=== PATIENT | female | born 1970 | race Caucasian/White ===

== ENCOUNTER 2019-04-10 05:51 | Observation (INO) ==
--- NOTE | 2019-03-28 15:37 | PAT Medication Instructions ---
Medication Instructions Date of Service March 28, 2019 Home Medications ergocalciferol (vitamin D2) 50,000 unit PO DIRECTED gabapentin 300 mg PO DAILY PRN DO NOT take the morning of surgery ergocalciferol (vitamin D2) 50,000 unit PO DIRECTED Take morning of surgery With a small sip of water, OTHERWISE NOTHING TO EAT OR DRINK AFTER MIDNIGHT: gabapentin 300 mg PO DAILY PRN (if needed) Other Notes If you have any questions please call us at [phone] or [phone] or [phone] or [phone]
--- NOTE | 2019-03-29 11:09 | Anesthesiology Consultation ---
Date of Service March 29, 2019 Assessment & Plan (1) Encounter for pre-operative examination: CHECK TEST AM DOS Chart Review Chart Review: Acceptable Risk for Surgery and Patient seen in Pre Admission Testing Teaching & Discussion Instructed NPO after midnight before surgery, except medications with 15 cc of water. Medication instructions provided according to the PAT guidelines. History Surgery Operation Date: 04/10/19 07:45 Proposed Procedures p C4-C5, C5-C6, C6-C7 Anterior Cervical Discectomy and Fusion, Spinal Cord Mointoring - Dilan Hollins DO Height/Weight Height: 5 ft 8 in Weight: 93.2 kg Allergies Allergy/AdvReac Type Severity Reaction Status Date / Time No Known Allergies Allergy Verified 03/28/19 08:10 Medications Home Medications Medication Instructions Recorded Confirmed Last Taken ergocalciferol (vitamin D2) 50,000 unit PO DIRECTED 03/28/19 03/28/19 Unknown [Vitamin D2] gabapentin 300 mg PO DAILY PRN 03/28/19 03/28/19 Unknown Past Medical History Medical History Cervical stenosis of spinal canal History of skin cancer on back Obesity Exercise / Class Metabolic Activity II 4-5 Yardwork/Stairs/Walk up hill (Denies CP or SOB with 1 FOS) Past Surgical History Surgical History H/O colonoscopy History of surgery removal melanoma on back Past Anesthesia History No Hx of Anesthesia Complications and No Family Hx of Anesthesia Complications History of PONV No Hx of PONV and Hx of Motion Sickness Social History Smoking Status: Current every day smoker Smoking cigarettes per day: h/o 1/2ppd Do You Dip or Chew Tobacco: No Smoking End Date: Quit 2-3yrs ago Hx Alcohol Use: Yes Alcohol type: beer and hard liquor alcohol intake frequency: a few times a week Hx Substance Use: No Review of Systems Pt denies any recent chest pain, shortness of breath, palpitations, cough, fever or URI. Physical Exam Vital Signs BP: 140/94 (pt reports this is high for her) P: 80bpm SPO2: 98% RA T: 98.3 F R: 12 ENMT Mouth: no dental restorations, no chipped teeth and no loose teeth Thyromental Distance: > or= 3.5 Finger Breadths (4) Mallampati Class: I Few missing molars. Neck normal visual inspection and + limited neck extension (severe radiculopathy with neck extension) Respiratory normal respiratory effort Auscultation: lungs clear to auscultation bilaterally Cardiovascular Rate/Rhythm: regular rate and regular rhythm Heart Sounds: no murmur Vessels: no carotid bruit Extremities: no edema Testing Laboratory Results 03/29/19 11:17 03/29/19 11:17 PT 10.3 Seconds (9.0-12.0) 03/29/19 11:17 INR 1.0 (0.9-1.1) 03/29/19 11:17 APTT 25.1 Seconds (21.0-31.0) 03/29/19 11:17 Urine Color Yellow 03/29/19 11:17 Urine Appearance Cloudy (Clear) A 03/29/19 11:17 Urine pH 5.0 (4.5-7.5) 03/29/19 11:17 Ur Specific [place] 1.022 (1.000-1.030) 03/29/19 11:17 Urine Protein Negative (Negative) 03/29/19 11:17 Urine Glucose (UA) Negative (Negative) 03/29/19 11:17 Urine Ketones Negative (Negative) 03/29/19 11:17 Urine Nitrite Negative (Negative) 03/29/19 11:17 Ur Leukocyte Esterase Negative (Negative) 03/29/19 11:17 Urine WBC (Auto) 1-5 /hpf (0-5) 03/29/19 11:17 Urine RBC (Auto) 0-4 /hpf (0-4) 03/29/19 11:17 U Hyaline Cast (Auto) 1-5 /lpf (0-5) 03/29/19 11:17 U Epithel Cells (Auto) >30 /lpf (0-5) H 03/29/19 11:17 Urine Bacteria (Auto) Negative (Negative) 03/29/19 11:17 Blood Type B Positive 03/29/19 11:17 Antibody Screen NEGATIVE 03/29/19 11:17 Electrocardiogram Date: 03/29/19 Findings: + NSR @ (66) Chest X-Ray Date: 03/29/19 Findings: + NAD
--- NOTE | 2019-03-29 11:50 | XRay Report ---
XR chest Pre-admission PA/Lat CLINICAL HISTORY: pat preoperative evaluation COMPARISON STUDY: No previous studies for comparison. FINDINGS: The bones soft tissues and hemidiaphragms are normal. The cardiomediastinal silhouette is n ormal. The lungs are clear. The pulmonary vasculature is normal. IMPRESSION: Negative chest. The above report was generated using voice recognition software. It may contain grammatical, syntax or spelling errors. Electronically signed by: Mekhi Toro M.D. 03/29/2019 11:49 AM
[2019-03-29 12:49] LABS: Basophils # (auto) 0.03 K/uL (0-0.2); Basophils % (auto) 0.5 %; Eosinophils # (auto) 0.16 K/uL (0-0.5); Eosinophils % (auto) 2.4 %; Hematocrit (blood only) 40.7 % (37-47); Hemoglobin 13.8 g/dL (12.0-16.0); Immature Granulocytes # (auto) 0.01 K/uL (0.00-0.02); Immature Granulocytes % (auto) 0.2 %; Lymphocytes % (auto) 42.7 %; Mean Corpuscular Hgb Conc 33.9 g/dL (32-36); Mean Corpuscular Volume 96.9 fL (80-100); Mean Platelet Volume 11.6 fL (7.4-10.4); Monocytes # (auto) 0.45 K/uL (0.11-0.59); Monocytes % (auto) 6.9 %; Neutrophils % (auto) 47.3 %; Platelet Count 190 K/uL (130-400); RDW Coefficient of Variation 13.1 % (11.5-14.5); RDW Standard Deviation 46.2 fL (36.4-46.3); White Blood Count 6.55 K/uL (4.8-10.8)
[2019-03-29 12:56] LABS: Appearance Urine Cloudy (Clear); Bacteria Urine Automated Negative (Negative); Bilirubin Urine Negative (Negative); Blood Urine Negative (Negative); Color Urine Yellow; Epithelial Cell Urine Auto >30 /lpf (0-5); Glucose Urine UA Negative (Negative); Ketones Urine Negative (Negative); Leukocyte Esterase Urine Negative (Negative); Nitrite Urine Negative (Negative); Protein Urine Negative (Negative); RBC Urine Automated 0-4 /hpf (0-4); Specific Gravity Urine 1.022 (1.000-1.030); Urobilinogen Urine Negative (Negative)
[2019-03-29 12:59] LABS: Partial Thromboplastin Ratio 0.9; Partial Thromboplastin Time 25.1 Seconds (21.0-31.0); Prothrombin Time 10.3 Seconds (9.0-12.0)
[2019-03-29 13:00] LABS: BUN Creatinine Ratio 21.3 (10-20); Calcium 8.8 mg/dl (8.5-10.1); Creatinine Clr Calc Pharmacy 96.9 ml/min; Est GFR (Non-African American) 82.9
[~2019-04-10 05:51] MED LIST: LR 15ML/HR IV SCH
[2019-04-10] MEDS ORDERED: CEFAZOLIN 1000MG 1,000 MG/7.5 ML SYR IV SCH (06:00)
[2019-04-10] MEDS ORDERED: CEFAZOLIN 2000MG 2,000 MG/15 ML SYR IV SCH (06:00)
[2019-04-10] MEDS ORDERED: LR 15ML/HR IV SCH (06:00)
[2019-04-10] MEDS ORDERED: ACETAMINOPHEN 500 MG TAB PO SCH (06:00)
[2019-04-10] MEDS ORDERED: GABAPENTIN 900 MG DOSE PO SCH (06:00)
[2019-04-10] MEDS ORDERED: LR 500ML BOLUS IV SCH (06:00)
[2019-04-10] MEDS ORDERED: CeleBREX 200 MG CAP PO SCH (06:00)
[2019-04-10] MEDS ORDERED: DEXAMETHASONE SOD INJ 4 MG/ML VIAL ONE (06:38)
[2019-04-10] MEDS ORDERED: fentaNYL citrate 100 MCG/2 ML VIAL ONE ×2 (06:38→08:18)
[2019-04-10] MEDS ORDERED: MIDAZOLAM HCL 1 MG/ML 2ML VIAL ONE (06:38)
[2019-04-10] MEDS ORDERED: ONDANSETRON INJ 2 MG/ML 2 ML VIAL ONE (06:38)
[2019-04-10] MEDS ORDERED: PROPOFOL IV EMULSION 10 MG/ML 20 ML VIAL IV ONE (06:38)
[2019-04-10] MEDS ORDERED: LIDOCAINE HCL 2% 2 ML VIAL/AMP(20MG/ML) INFIL ONE (06:38)
[2019-04-10] MEDS ORDERED: ePHEDrine sulfate 50 MG/ML AMP IV PRN (06:40)
[2019-04-10] MEDS ORDERED: ONDANSETRON INJ 2 MG/ML 2 ML VIAL IV PRN ×2 (06:40→12:12)
[2019-04-10] MEDS ORDERED: ATROPINE SULFATE 0.1 MG/ML 10ML SYR IV PRN (06:40)
[2019-04-10] MEDS ORDERED: BACITRACIN INJ 50,000 UNIT VIAL ONE (07:13)
--- NOTE | 2019-04-10 07:32 | History & Physical Bridge Note ---
Date of Service April 10, 2019 History & Physical Bridge Note I have examined the patient, reviewed the History & Physical and in the interval since the performance of the History & Physical I have noted the following changes of clinical significance: no changes noted
--- NOTE | 2019-04-10 07:34 | History & Physical Report ---
Date of Service April 10, 2019 Assessment & Plan (1) Cervical stenosis of spinal canal: Anterior cervical discectomy and fusion C4-5 C5-6 C6-7. Present on Admission?: Yes History of Present Illness Chief Complaint: Neck and arm pain Primary Care Provider: Gonzalo Maddox This is a 49-year-old female that presents with chronic persistent neck and arm pain. After failing extensive course of nonoperative care is here for surgical intervention. Allergies Allergy/AdvReac Type Severity Reaction Status Date / Time No Known Allergies Allergy Verified 04/10/19 06:08 Home Medications Home Medications Medication Instructions Recorded Confirmed Type ergocalciferol (vitamin D2) 50,000 unit PO DIRECTED 03/28/19 04/10/19 History [Vitamin D2] gabapentin 300 mg PO DAILY PRN 03/28/19 04/10/19 History Past Med/Surg History Medical History Cervical stenosis of spinal canal History of skin cancer on back Obesity Surgical History H/O colonoscopy History of surgery removal melanoma on back Social History Preferred Language: Kittitian Communication Ability: Effective Beliefs That Will Affect Care: None Current Living Situation: Significant Other Feels Safe at Home: Yes Safety Concerns: Feels Safe At This Time Smoking Status: Current every day smoker Cigarettes Per Day: h/o 1/2ppd Do You Dip or Chew Tobacco: No Smoking End Date: Quit 2-3yrs ago Second Hand Exposure: Yes (OCCASSIONALLY) Hx Alcohol Use: Yes Alcohol type: beer and hard liquor Hx Substance Use: No Physical Exam Physical Exam: Patient is alert and oriented and neurologically intact. Results & Data Vital Signs (Past 12 Hours) Vital Signs Temp Pulse Resp BP Pulse Ox 04/10/19 06:10 36.8 C 87 18 131/97 97
[2019-04-10] MEDS ORDERED: HYDROmorphone INJ 2 MG/ML SYR/VIAL ONE (07:49)
[2019-04-10] MEDS ORDERED: FLOSEAL HEMOSTATIC MATRIX 10ML TOP ONE (08:29)
[2019-04-10] MEDS ORDERED: ROCURONIUM BROMIDE 10 MG/ML 5 ML VIAL ONE ×2 (09:18→09:39)
[2019-04-10] MEDS ORDERED: NEOSTIGMINE METHYLSULFATE 1 MG/ML 10ML VIAL ONE (09:18)
[2019-04-10] MEDS ORDERED: GLYCOPYRROLATE 0.2 MG/ML VIAL ONE (09:18)
--- NOTE | 2019-04-10 10:24 | Operative Report ---
Post Operative Report Pre & Post Diagnosis Operation Date: 04/10/19 07:45 Pre-Op Diagnosis: Spinal Stenosis, Cervical Region Post-Op Diagnosis: Spinal Stenosis, Cervical Region Procedure Operation Date: 04/10/19 07:45 Actual Procedures 1. Anterior cervical discectomy bilateral foraminotomies C4-5 C5-6 and C6-7. #2 anterior cervical arthrodesis C4-5 C5-6 C6-7. #3 placement of 7 mm cortical allograft filled with DBM C4-5 C5-6 and C6-7. #4 placement of law plate and screws across C C4-C7. Surgeon Dilan Hollins, DO Manager Architectural None Estimated Blood Loss 50 Findings See Below The patient is 5 foot 8 inches tall and 93.4 kg with a BMI of 31.3. The patient's body habitus did increase technical difficulty throughout the procedure adding at least 25% increase in operative time. Specimens None Indications This is a 49-year-old female who presents with chronic persistent left cervical radiculopathy. After failing extensive course of nonoperative care she like to undergo the above-mentioned procedure. Description of Procedure Patient was met with preoperatively case discussed all questions addressed. After informed consent obtained patient was taken to the operative suite underwent intubation and placed in supine position the [place] table with head Espinoza head paper tester. All bony prominences well-padded eyes inspected to ensure no external pressure placed upon the peer at this point the anterior cervical spine was prepped and draped in the normal sterile fashion. With the assistance of fluoroscopy identified the C5-6 disc space and transverse incision was placed along the right anterior aspect of the cervical spine overlying this region. Sharp dissection with the assistance of Bovie cautery was performed down to and exposing the anterior cervical spine from C4 to see 7. Self-retaining retractors placed. Verified my position with fluoroscopy. Then performed a complete discectomy of C4-5 out to the uncovertebral joints bilaterally. Removed all posterior annular fibers performed bilateral foraminotomies. Endplates were then burred to subcortical bleeding bone and a 7 mm cortical allograft filled with DBM tapped in position. Then proceeded to C5-6. Again complete discectomy performed out to the uncovertebral joints bilaterally. Removed all posterior annular fibers longitudinal ligament and bilateral foraminotomies again performed. Lastly presented at the C6-7 level again complete discectomy performed removed all posterior fibers and longitudinal ligament bilateral foraminotomies performed. Endplates were then burred to subcortical bleeding bone and a 7 mm cortical allograft filled with DBM tamped in position. The anterior ossified's burred with smooth cortical surface and a 48 mm law plate and screws applied with the assistance of fluoroscopy. Incision was then copiously irrigated explored to ensure no damage to surrounding structures remaining bleeding. 10 round MARLA drain inserted. The incision was then closed with 2 Vicryl in the fascia and 4-0 Monocryl for final skin closure. Steri-Strip sterile dressings placed. Patient awakened taken to PACU stable condition. Please note spinal cord monitoring was utilized that procedure no changes noted. I attest to the content of the Intraoperative Record and any orders documented therein. Any exceptions are noted below.
--- NOTE | 2019-04-10 10:38 | Fluoroscopy Report ---
INTRAOPERATIVE RADIOGRAPHS CLINICAL HISTORY: C4-C7 spinal fusion. Fluoroscopy time: 14 seconds. FINDINGS: 2 spot fluoroscopic views of the cervical spine are presented. There is evidence of anterio r fusion from C4 -C7. The orthopedic hardware appears intact. An endotracheal tube is in place. IMPRESSION: Intraoperative images from C4 -C7 spinal fusion. Electronically signed by: Tong Cruz M.D. 04/10/2019 10:36 AM
[2019-04-10] MEDS: fentaNYL citrate 100 MCG/2 ML VIAL IV PRN ×2 (10:56→11:11)
--- NOTE | 2019-04-10 12:07 | Anesthesiology Progress Note ---
Date of Service April 10, 2019 Anesthesia Post Procedure Vital Signs Vital Signs: Temp Pulse Pulse Resp BP Pulse Ox 04/10/19 11:30 97.7 F 76 13 133/90 93 04/10/19 11:20 76 13 143/83 H 93 04/10/19 11:10 74 14 142/90 H 92 04/10/19 11:00 83 16 145/75 H 94 04/10/19 10:50 79 14 161/109 H 94 04/10/19 10:40 77 12 147/88 H 95 04/10/19 10:30 96.8 F L 79 14 149/105 H 96 04/10/19 06:10 98.2 F 87 18 131/97 97 Pain Intensity Neck: Pain Intensity: 3 Transfer of Care Handoff Completed per policy Notes Mental Status: alert / awake / arousable and participated in evaluation Patient Amnestic to Procedure: Yes Nausea / Vomiting: adequately controlled Pain: adequately controlled Airway Patency, RR, SpO2: stable & adequate BP & HR: stable & adequate Hydration State: stable & adequate Anesthetic Complications: no major complications apparent and Pt Satisfied with anesthetic care
[2019-04-10] MEDS ORDERED: MAGNESIUM HYDROXIDE SUSP 30 ML UDC PO PRN (12:12)
[2019-04-10] MEDS ORDERED: LORazepam 0.5 MG/1 ML VIAL IV PRN (12:12)
[2019-04-10] MEDS ORDERED: HYDROmorphone INJ 0.5 MG/0.5 ML SYR IV PRN (12:12)
[2019-04-10] MEDS ORDERED: DEXAMETHASONE SOD PHOSPHATE 8 MG in SYRINGE 0 ML IV PRN (12:12)
[2019-04-10] MEDS ORDERED: DiphenhydrAMINE HCL 50 MG/ML VIAL IV PRN (12:12)
[2019-04-10] MEDS ORDERED: LORazepam 0.5 MG TAB PO PRN (12:12)
[2019-04-10] MEDS ORDERED: ACETAMINOPHEN 1,000 MG/100 ML VIAL IV PRN (12:12)
[2019-04-10] MEDS ORDERED: GABAPENTIN 300 MG CAP PO PRN (12:12)
[2019-04-10] MEDS ORDERED: DO NOT ADMINISTER PNEUMOCOCCAL VACCINE PRN (12:12)
[2019-04-10] MEDS ORDERED: RACEPINEPHRINE 2.25% NEBU SOLN 0.5 ML VIAL INH PRN (12:12)
[2019-04-10] MEDS ORDERED: DO NOT ADMINISTER FLU VACCINE PRN (12:12)
[2019-04-10] MEDS ORDERED: NALOXONE HCL 0.4 MG/1 ML VIAL/CARP IV PRN (12:12)
[2019-04-10] MEDS: LACTATED RINGER'S 1,000 ML IV SCH (12:37)
[2019-04-10] MEDS ORDERED: SCOPOLAMINE 1.5 MG TDSY TD SCH (13:00)
[2019-04-10] MEDS: OXYCODONE HCL IR 5 MG TAB (IMMEDIATE RELEASE) PO PRN ×2 (13:32→21:02)
[2019-04-10] MEDS: CEFAZOLIN 2000MG 2,000 MG/15 ML SYR IV SCH ×2 (14:35→22:24)
[2019-04-10] MEDS ORDERED: NURSING DECISION MEDICATION ONE (15:50)
[2019-04-10] MEDS ORDERED: COUGH DROP (SUGAR FREE) LOZ 24 LOZ/1 BOX BUCCAL PRN (15:53)
[2019-04-10] MEDS: CHECK SCOPOLAMINE PATCH PLACEMENT SCH ×2 (16:02→23:15)
[2019-04-10] MEDS: DOCUSATE SODIUM 100 MG CAP PO SCH (20:59)
[2019-04-11] MEDS: LACTATED RINGER'S 1,000 ML IV SCH (02:33)
[2019-04-11] MEDS: OXYCODONE HCL IR 5 MG TAB (IMMEDIATE RELEASE) PO PRN ×2 (03:08→11:04)
[2019-04-11] MEDS: CEFAZOLIN 2000MG 2,000 MG/15 ML SYR IV SCH (06:07)
--- NOTE | 2019-04-11 07:50 | Anesthesiology Progress Note ---
Date of Service April 11, 2019 Anesthesia Post Procedure Vital Signs Vital Signs: Temp Pulse Pulse Pulse Resp BP Pulse Ox 04/11/19 07:12 70 14 92 04/11/19 06:54 36.8 C 70 18 121/81 94 04/11/19 03:15 99 H 16 94 04/11/19 03:05 36.8 C 81 15 118/75 97 04/11/19 01:08 36.9 C 86 15 113/76 96 04/10/19 23:12 93 H 16 95 04/10/19 23:05 36.9 C 98 H 16 114/72 95 04/10/19 20:54 37.2 C 92 H 16 114/75 94 04/10/19 19:08 87 16 98 04/10/19 18:55 37.0 C 92 H 92 H 16 132/84 96 04/10/19 16:54 36.9 C 93 H 16 126/84 95 04/10/19 15:35 72 16 96 04/10/19 14:55 36.7 C 87 16 118/83 96 04/10/19 13:25 86 16 130/83 96 04/10/19 12:52 87 16 122/84 95 04/10/19 12:32 83 16 124/83 04/10/19 12:07 84 16 94 04/10/19 11:55 36.8 C 76 16 141/87 H 94 04/10/19 11:30 36.5 C 76 13 133/90 93 04/10/19 11:20 76 13 143/83 H 93 04/10/19 11:10 74 14 142/90 H 92 04/10/19 11:00 83 16 145/75 H 94 04/10/19 10:50 79 14 161/109 H 94 04/10/19 10:40 77 12 147/88 H 95 04/10/19 10:30 36.0 C L 79 14 149/105 H 96 Pain Intensity Neck: Pain Intensity: 6 Notes Mental Status: alert / awake / arousable and participated in evaluation Patient Amnestic to Procedure: Yes Nausea / Vomiting: adequately controlled Pain: adequately controlled Airway Patency, RR, SpO2: stable & adequate BP & HR: stable & adequate Hydration State: stable & adequate Anesthetic Complications: no major complications apparent and Pt Satisfied with anesthetic care
[2019-04-11] MEDS: CHECK SCOPOLAMINE PATCH PLACEMENT SCH (08:30)
[2019-04-11] MEDS: DOCUSATE SODIUM 100 MG CAP PO SCH (08:30)
--- NOTE | 2019-04-11 14:43 | Discharge Summary ---
Date of Service April 11, 2019 Admission HPI Per Admitting Provider This is a 49-year-old female that presents with chronic persistent neck and arm pain. After failing extensive course of nonoperative care is here for surgical intervention. Principal Diagnosis Cervical spinal stenosis with radiculopathy Discharge Data Allergies Allergy/AdvReac Type Severity Reaction Status Date / Time No Known Allergies Allergy Verified 04/10/19 06:08 Procedures Performed Operation Date: 04/10/19 07:45 Actual Procedures p C4-C5, C5-C6, C6-C7 Anterior Cervical Discectomy and Fusion, Spinal Cord Monitoring(Not Applicable) - Dilan Hollins DO Ordered Studies 04/10/19 07:45 FL cervical 2-3V Routine FL fluoroscopy <1hr Routine Hospital Course (1) Cervical stenosis of spinal canal: Patient underwent multilevel anterior cervical discectomy and fusion tolerated this well was taken to orthopedic for postoperative. Postop day 1 she was swallowing well. Arm symptoms improved. MARLA drain decreasing appropriately. Subsequently discharged home. Discharge orders and instructions can be found in chart for further review. Total Time Total Time Spent Total Time Spent (In Minutes): 10 minutes Discharge Plan Discharge Items Patient Disposition: Home - Self-Care Reason For Visit: Spinal Stenosis, Cervical Region Discharge Diagnosis: cervical stenosis Discharge Goals: Decrease discomfort Activity: Per 'Additional Instructions' section Non-emergency contact: Primary Care Provider Call non-emergency contact if: you have any medication questions Follow-up/Referrals: Gonzalo Maddox [Primary Care Provider] - Diet: Regular Addtl Provider Instructions: ACTIVITY RECOMMENDATIONS: SELF CARE INSTRUCTIONS AFTER CERVICAL FUSIONS 1. No smoking. Smoking drastically decreases the chance of a solid fusion. 2. No bending, lifting more than 5 pounds, or twisting (roll like a log when turning in bed). 3. You may shower 3 days after surgery. Thoroughly dry wound. Do not soak in the tub. 4. Cervical collar: Must be worn at all times including sleeping. You may remove the brace only to bath, eat and if you are sitting in a recliner. 5. Please walk as much as you can for exercise. Gradually increase the distance that you walk as your endurance increases. SPECIAL CARE INSTRUCTIONS: VERY IMPORTANT TO READ AND REVIEW A. Do not take any anti-inflammatory medications (i.e. Indocin, Advil, Aspirin, Naprosyn, Aleve, Motrin, etc.) as these may inhibit the chance of a solid fusion. Tylenol is okay to take. B. Your surgical incision has been closed with a cosmetic suture under the skin that will dissolve in about 6 weeks. In 14 days, you can use a pair of clean scissors and cut the suture that is left outside of the skin at the ends of your incision. C. Complications are uncommon, but please contact us if you have any signs or symptoms of: 1. wound infection (fever higher than 102.5 degrees F, redness, separation of wound, drainage, or increasing pain from the incision) 2. blood clots in legs (pain, swelling, redness and warmth in legs) 3. urinary tract infection (fever higher than 102.5 degrees, burning upon urination or increased frequency of urination) 4. nerve problems (inability to walk on your toes or heels, numbness, loss of bowel or bladder control) 5. any other symptoms that concern you. D. Please call the office at if you have any concerns or questions about your operation or recovery. MANAGING PAIN AFTER SPINAL SURGERY 1. Narcotic medication is intended for short-term use and will be provided for surgical pain. Surgical pain usually lasts for a period of 4-6 weeks. Narcotic medication includes Percocet, Vicodin, Darvocet, Tylenol #3 or Lortab. 2. Longer-term pain is more appropriately treated with non-narcotic medication such as Tylenol ES. 3. Muscle spasm is not appropriately treated with narcotics. Muscle relaxers such as Soma, Flexeril or Skelaxin can be used along with Tylenol ES. 4. Remember that we all live with some "aches and pains". This is not unusual or uncommon after an injury or as we get older. 5. We will provide appropriate medication within the normal guidelines of their prescribed use. We will also be very cautious and aware of potential abuse and extended duration of patients' medication needs. 6. Please allow 2-3 days to process refills. Prescriptions will not be mailed but must be picked up at the office. FOLLOW UP VISIT: Keep your scheduled follow-up appointment. Any questions, please call the office at . Prescriptions: Continued gabapentin 300 mg Capsule 300 mg PO DAILY PRN (Reason: Pain) RF: 0 ergocalciferol (vitamin D2) [Vitamin D2] 50,000 unit Capsule 50,000 unit PO DIRECTED RF: 0 Stand-Alone Forms: [employer], [facility] [employer]/Other Patient Handouts: Surgery Prevent DVT After, ED Stockings [place] Discharge Orders: Discharge Order (Routine); Ordered 04/11/19 Ordered By: Dilan Hollins Admission Data Admit Date/Time: 04/10/19 10:29 Attending Provider: Dilan Hollins Admit Provider: Dilan Hollins Primary Care Provider: Gonzalo Maddox Service: Surgical Services Other Interventions: Discharge Summary Assessment (RN) Last Done: 04/11/19 09:50 DC Date/Time DO NOT enter until pt leaves facility: 04/11/19 13:17
[2019-04-12] MEDS ORDERED: BISACODYL 5 MG TABEC PO PRN (10:28)
[2019-04-12] MEDS ORDERED: POLYETHYLENE (MIRALAX) 17 GM PACK PO PRN (10:28)
== END 2019-04-11 13:17 | disposition home or self-care (01) ==
LOC: 3E 05:51 → ASU 05:51

== ENCOUNTER 2022-01-15 06:07 | Observation (INO) ==
--- NOTE | 2021-12-30 13:45 | PAT Medication Instructions ---
Medication Instructions Date of Service December 30, 2021 Home Medications ergocalciferol (vitamin D2) 1,250 mcg (50,000 unit) capsule (Vitamin D2) 50,000 unit Bifidobacterium infantis 10.5 mg (10 million cell) chewable tablet (Align) 21 mg PO BID Pectosol Otc 1 tab PO QAM apple cider vinegar 600 mg capsule 1,200 mg PO QAM aspirin 81 mg tablet,delayed release 81 mg PO QAM cholecalciferol (vitamin D3) 50 mcg (2,000 unit) capsule (Vitamin D3) 50 mcg PO QAM fenofibrate micronized 67 mg capsule 67 mg PO QAM omega 6-vhm-dde-fish oil 1,200 mg (144 mg-216 mg) capsule (Fish Oil) 1 cap PO QAM pantoprazole 40 mg tablet,delayed release 40 mg PO QAM ASK your prescriber and surgeon aspirin 81 mg tablet,delayed release 81 mg PO QAM STOP taking 2 weeks before surgery Pectosol Otc 1 tab PO QAM apple cider vinegar 600 mg capsule 1,200 mg PO QAM omega 3-sby-mwa-fish oil 1,200 mg (144 mg-216 mg) capsule (Fish Oil) 1 cap PO QAM STOP taking 48 hours before surgery fenofibrate micronized 67 mg capsule 67 mg PO QAM DO NOT take the morning of surgery ergocalciferol (vitamin D2) 1,250 mcg (50,000 unit) capsule (Vitamin D2) 50,000 unit Bifidobacterium infantis 10.5 mg (10 million cell) chewable tablet (Align) 21 mg PO BID cholecalciferol (vitamin D3) 50 mcg (2,000 unit) capsule (Vitamin D3) 50 mcg PO QAM Take morning of surgery With a small sip of water, OTHERWISE NOTHING TO EAT OR DRINK AFTER MIDNIGHT: pantoprazole 40 mg tablet,delayed release 40 mg PO QAM Take evening before surgery Bifidobacterium infantis 10.5 mg (10 million cell) chewable tablet (Align) 21 mg PO BID Other Notes If you have any questions please call us at [phone] or [phone] or [phone] or [phone]
--- NOTE | 2022-01-01 12:49 | Anesthesiology Consultation ---
Date of Service January 01, 2022 Assessment & Plan (1) Encounter for pre-operative examination: - COVID screening: Per assessment on 01/01: Travel screen negative, no known COVID-19 positive contacts or current COVID-19 related symptoms. Surgeon arrevan ng preop COVID testing. Awaiting results. - S/P C4-C7 ACDF (04/10/19): Grade 1 view, Glidescope #3, ETT#7.0 atraumatic x 1. No post-op issues per anesthesia progress note. - Check test AM DOS Chart Review Chart Review: Acceptable Risk for Surgery and Patient seen in Pre Admission Testing Teaching & Discussion Pre-Anesthesia Teaching/Discussion Notes: Instructed NPO after midnight before surgery,except medications with 15 cc of water. Medication instructions provided according to the PAT guidelines. History Surgery Operation Date: 01/15/22 07:45 Proposed Procedures p C3-C4 Anterior Cervical Discectomy and Fusion, Spinal Cord Monitoring - Dilan Hollins, Height/Weight Height: 5 ft 7 in Weight: 96.6 kg Allergies Allergy/AdvReac Type Severity Reaction Status Date / Time No Known Allergies Allergy Verified 12/30/21 09:00 Medications Home Medications Medication Instructions Recorded Confirmed Last Taken ergocalciferol (vitamin D2) 1,250 50,000 unit PO DIRECTED 03/28/19 12/30/21 03/27/19 mcg (50,000 unit) capsule (Vitamin D2) Bifidobacterium infantis 10.5 mg 21 mg PO BID 12/30/21 12/30/21 Unknown (10 million cell) chewable tablet (Align) Pectosol Otc 1 tab PO QAM 12/30/21 12/30/21 Unknown apple cider vinegar 600 mg capsule 1,200 mg PO QAM 12/30/21 12/30/21 Unknown aspirin 81 mg tablet,delayed 81 mg PO QAM 12/30/21 12/30/21 Unknown release cholecalciferol (vitamin D3) 50 50 mcg PO QAM 12/30/21 12/30/21 Unknown mcg (2,000 unit) capsule (Vitamin D3) fenofibrate micronized 67 mg 67 mg PO QAM 12/30/21 12/30/21 Unknown capsule omega 4-nba-uhg-fish oil 1,200 mg 1 cap PO QAM 12/30/21 12/30/21 Unknown (144 mg-216 mg) capsule (Fish Oil) pantoprazole 40 mg tablet,delayed 40 mg PO QAM 12/30/21 12/30/21 Unknown release Past Medical History Medical History Cervical stenosis of spinal canal GERD (gastroesophageal reflux disease) Hiatal hernia History of skin cancer Melanoma (back) Hyperlipidemia Obesity Exercise / Class Metabolic Activity III < 4 Walking/Shop/Light housework (one FS (no CP, very mild SOB)) Past Family History Family History Other No known health problems Past Surgical History Surgical History Cervical vertebral fusion C4-C7 ACDF (04/10/19): Grade 1 view, Glidescope #3, ETT#7.0 atraumatic x 1. No post-op issues per anesthesia progress note. H/O colonoscopy 2018 History of surgery removal melanoma on back Past Anesthesia History No Hx of Anesthesia Complications and No Family Hx of Anesthesia Complications History of PONV No Hx of PONV and Hx of Motion Sickness STOP BANG Total 1 Social History Smoking Status: Current every day smoker Smoking cigarettes per day: 10 cigs/day (intermediate use over several years) Do You Dip or Chew Tobacco: No Hx Alcohol Use: Yes Alcohol type: hard liquor alcohol intake frequency: 0-2 drinks per day (5 OZ A DAY (RUM)) Hx Substance Use: No Review of Systems Patient denies chest pain, shortness of breath, fever, chills, cough, wheezing, palpitations. Physical Exam Vital Signs VITALS BP 139/93 P 96 TEMP 99.2 SP02 97%RA RESP 18 PHYSICAL Very decreased cervical extension range of motion (pt reports getting significant nausea if extending further). Full TMJ range of motion. TMD 4 finger breaths Mallampati Score 1 Dentition: missing sides/molars Lungs: clear throughout to auscultation Cardiac: regular rate and rhythm, no murmurs noted Spine: normal Carotid arteries: negative bruit Extremities: no edema Lab Results Anesthesia Preop Results Results Anesthesia Widget: WBC 11.85 K/uL (4.8-10.8) H 01/01/22 Hgb 13.4 g/dL (12.0-16.0) 01/01/22 Hct 40.4 % (37-47) 01/01/22 Plt 194 K/uL (130-400) 01/01/22 PT 10.2 Seconds (9.0-12.0) 01/01/22 PTT 25.4 Seconds (21.0-31.0) 01/01/22 INR 1.0 (0.9-1.1) 01/01/22 Urine Color Yellow 01/01/22 Urine Appearance Clear (Clear) 01/01/22 Urine pH 5.5 (4.5-7.5) 01/01/22 Urine Specific [place] 1.013 (1.000-1.030) 01/01/22 Urine Protein Negative (Negative) 01/01/22 Urine Glucose (UA) Negative (Negative) 01/01/22 Urine Ketones Negative (Negative) 01/01/22 Urine Blood Negative (Negative) 01/01/22 Urine Nitrite Negative (Negative) 01/01/22 Urine Bilirubin Negative (Negative) 01/01/22 Urine Urobilinogen Negative (Negative) 01/01/22 Urine Leukocyte Esterase Negative (Negative) 01/01/22 Blood Type B Positive 01/01/22 Antibody Screen NEGATIVE 01/01/22 Lab Comments: Elevated WBC > preop testing forwarded to PCP for continuity of care* Testing Laboratory Results 12/10/21 SODIUM 138 POTASSIUM 4.1 CHLORIDE 107 CO2 24 BUN 18 CREATININE 0.7 GLUCOSE 92 Electrocardiogram Date: 01/01/22 NSR at 87bpm. unconfirmed report. Other Testing Chest CT (12/29/21): Severe diffuse hepatic steatosis with circular hypodensity in the dome of the right lobe of the liver which may represent hepatic cysts but characterization is limited given low-dose noncontrast evaluation. Can further evaluate with right upper quadrant ultrasound. Calcified granuloma in the left lower lobe. No pleural effusion no pneumothorax. Groundglass opacity in the right upper lobe measuring 7 mm. Probability of malignancy: Less than 1%. Recommendation to continue screening with low-dose chest CT in 12 months.
[~2022-01-15 06:07] MED LIST changes: +ACETAMINOPHEN 500 MG TAB PO SCH; +CeleBREX 200 MG CAP PO SCH; +GABAPENTIN 900 MG DOSE PO SCH; +ceFAZolin 2000MG 2,000 MG/15 ML SYR IV SCH
[2022-01-15] MEDS ORDERED: DEXAMETHASONE SOD INJ 4 MG/ML VIAL ONE (06:35)
[2022-01-15] MEDS ORDERED: fentaNYL citrate 100 MCG/2 ML VIAL ONE ×2 (06:35→08:13)
[2022-01-15] MEDS ORDERED: NEOSTIGMINE METHYLSULFATE 1 MG/ML 10ML VIAL ONE (06:35)
[2022-01-15] MEDS ORDERED: GLYCOPYRROLATE 0.2 MG/ML VIAL ONE (06:35)
[2022-01-15] MEDS ORDERED: ONDANSETRON INJ 2 MG/ML 2 ML VIAL ONE (06:35)
[2022-01-15] MEDS ORDERED: LIDOCAINE 2% 2 ML VIAL/AMP(20MG/ML) INFIL ONE (06:35)
[2022-01-15] MEDS ORDERED: PROPOFOL IV EMULSION 10 MG/ML 20 ML VIAL IV ONE (06:35)
[2022-01-15] MEDS ORDERED: MIDAZOLAM HCL 1 MG/ML 2ML VIAL ONE (06:35)
[2022-01-15] MEDS ORDERED: ROCURONIUM BROMIDE 10 MG/ML 5 ML VIAL IV ONE (06:48)
[2022-01-15] MEDS ORDERED: SUCCINYLCHOLINE CHLORIDE 20 MG/ML 10 ML VIAL IV ONE (06:48)
--- NOTE | 2022-01-15 07:33 | History & Physical Bridge Note ---
Date of Service January 15, 2022 History & Physical Bridge Note I have examined the patient, reviewed the History & Physical and in the interval since the performance of the History & Physical I have noted the following changes of clinical significance: no changes noted
--- NOTE | 2022-01-15 07:34 | History & Physical Report ---
Date of Service January 15, 2022 Assessment & Plan (1) Cervical stenosis of spinal canal: Plan: C3-C4 anterior cervical discectomy and fusion History of Present Illness Chief Complaint: Neck and arm pain Primary Care Provider: Gonzalo Maddox This is a 51-year-old female presents with chronic persistent neck and arm pain Failing course of nonoperative care she is here for surgical intervention. Allergies Allergy/AdvReac Type Severity Reaction Status Date / Time No Known Allergies Allergy Verified 01/15/22 06:37 Home Medications Medication Instructions Recorded Confirmed Type ergocalciferol (vitamin D2) 1,250 50,000 unit PO DIRECTED 03/28/19 01/15/22 History mcg (50,000 unit) capsule (Vitamin D2) Bifidobacterium infantis 10.5 mg 21 mg PO BID 12/30/21 01/15/22 History (10 million cell) chewable tablet (Align) Pectosol Otc 1 tab PO QAM 12/30/21 01/15/22 History apple cider vinegar 600 mg capsule 1,200 mg PO QAM 12/30/21 01/15/22 History aspirin 81 mg tablet,delayed 81 mg PO QAM 12/30/21 01/15/22 History release cholecalciferol (vitamin D3) 50 50 mcg PO QAM 12/30/21 01/15/22 History mcg (2,000 unit) capsule (Vitamin D3) fenofibrate micronized 67 mg 67 mg PO QAM 12/30/21 01/15/22 History capsule omega 5-zlv-hme-fish oil 1,200 mg 1 cap PO QAM 12/30/21 01/15/22 History (144 mg-216 mg) capsule (Fish Oil) pantoprazole 40 mg tablet,delayed 40 mg PO QAM 12/30/21 01/15/22 History release Past Med/Surg History Medical History Cervical stenosis of spinal canal GERD (gastroesophageal reflux disease) Hiatal hernia History of skin cancer Melanoma (back) Hyperlipidemia Obesity Surgical History Cervical vertebral fusion C4-C7 ACDF (04/10/19): Grade 1 view, Glidescope #3, ETT#7.0 atraumatic x 1. No post-op issues per anesthesia progress note. 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
[2022-01-15] MEDS ORDERED: ceFAZolin 330 MG/ML 1 GM VIAL ONE (07:39)
[2022-01-15] MEDS ORDERED: LABETALOL HCL IV 5 MG/ML 20ML IV ONE (08:14)
[2022-01-15] MEDS ORDERED: FLOSEAL HEMOSTATIC MATRIX 10ML TOP ONE (08:43)
--- NOTE | 2022-01-15 09:06 | Operative Report ---
Post Operative Report Pre & Post Diagnosis Operation Date: 01/15/22 07:45 Pre-Op Diagnosis: Spinal Stenosis, Cervical Region, C3-C4 Post-Op Diagnosis: Spinal Stenosis, Cervical Region, C3-C4 I identified the patient and participated in the time-out.: Yes Procedure Operation Date: 01/15/22 07:45 Actual Procedures 1 anterior cervical discectomy with bilateral foraminotomies C3-C4. #2 anterior cervical arthrodesis C3-C4. #3 placement of globus coalition cage 8 mm in height filled with I factor at C3-C4. Surgeon Dilan Hollins, DO Academic Director Ora Becerra Estimated Blood Loss 10 Findings See Below The patient is 5 foot 7 inches tall weighing over 96 kg with a BMI in excess of 33. Patient's body habitus did contribute to significant technical difficulty with positioning exposure at least 50% increased operative time. Specimens None Indications This is a 51-year-old female known to the presents with above-mentioned diagnosis after failed course of nonoperative care she is here for the above- mentioned procedure. Description of Procedure Patient is met with identified informed consent obtained. Patient was then taken to the operative suite underwent intubation placed in the supine position with the head in the Espinoza head tennis coach. All bony prominences well-padded eyes inspected to ensure no external pressure placed upon him. This point the anterior cervical spine was prepped and draped in the normal sterile fashion. With the assistance of fluoroscopy identify the C3-C4 disc space and a transverse incision was placed along the right anterior aspect of the cervical spine 's region. Blunt dissection with the assistance of bipolar electrocautery was then performed down to and exposing the anterior cervical spine at C3-C4. A self-retaining retractor was placed. Then performed a complete discectomy to the uncovertebral joints bilaterally. [place] distracting pins were utilized to assist in visualization. Removed all posterior annular fibers with longitudinal ligament bilateral foraminotomies performed. The endplates were then burred to subcortical bleeding bone and a 8 mm globus coalition cage filled with I factor tapped in position and screwed into place. Incision was then copiously irrigated explored to ensure no damage to surrounding structures or remaining bleeding. 10 round MARLA drain inserted. The incision was then closed with 2-0 Vicryl for fascia and a 4 Monocryl for final skin closure. Steri-Strips dressings placed. Patient will continue to PACU stable condition. Please note spinal cord monitoring was utilized at the procedure no changes noted. Lastly Ora Becerra was present at the entire surgery and while the patient positioning complex portions of the surgery and fascial closure. I attest to the content of the Intraoperative Record and any orders documented therein. Any exceptions are noted below.
[2022-01-15] MEDS ORDERED: fentaNYL citrate 100 MCG/2 ML VIAL IV PRN (09:14)
[2022-01-15] MEDS ORDERED: FLUMAZENIL 0.1 MG/1 ML 10 ML VIAL IV PRN (09:14)
[2022-01-15] MEDS ORDERED: PROMETHAZINE HCL 12.5 MG in SODIUM CHLORIDE 0.9% 50 ML IV PRN ×2 (09:14→10:55)
[2022-01-15] MEDS ORDERED: ONDANSETRON INJ 2 MG/ML 2 ML VIAL IV PRN ×2 (09:14→10:55)
[2022-01-15] MEDS ORDERED: ePHEDrine sulfate 50 MG/ML AMP IV PRN (09:14)
[2022-01-15] MEDS ORDERED: LABETALOL HCL IV 5 MG/ML 20ML IV PRN (09:14)
[2022-01-15] MEDS ORDERED: ATROPINE SULFATE 0.1 MG/ML 10ML SYR IV PRN (09:14)
[2022-01-15] MEDS ORDERED: HYDROmorphone INJ 1 MG/ML SYRINGE IV PRN ×2 (09:14→10:55)
[2022-01-15] MEDS ORDERED: NALOXONE HCL 0.4 MG/1 ML VIAL/CARP IV PRN ×2 (09:14→10:55)
--- NOTE | 2022-01-15 10:47 | Anesthesiology Progress Note ---
Date of Service January 15, 2022 Anesthesia Post Procedure Vital Signs Vital Signs: Temp Pulse Pulse Resp BP BP Pulse Ox 01/15/22 10:25 64 18 148/85 H 93 01/15/22 10:15 62 15 165/95 H 92 01/15/22 10:05 64 15 160/88 H 92 01/15/22 09:55 65 19 146/89 H 94 01/15/22 09:45 36.2 C L 64 16 152/93 H 94 01/15/22 09:35 65 15 146/85 H 94 01/15/22 09:25 66 13 158/87 H 93 01/15/22 09:17 36.1 C L 69 18 155/86 H 92 01/15/22 07:00 37 C 82 20 167/104 H 97 Transfer of Care Handoff Completed per policy Notes Mental Status: alert / awake / arousable Patient Amnestic to Procedure: Yes Nausea / Vomiting: adequately controlled Pain: adequately controlled Airway Patency, RR, SpO2: stable & adequate BP & HR: stable & adequate Hydration State: stable & adequate Anesthetic Complications: no major complications apparent
[2022-01-15] MEDS ORDERED: HYDROmorphone INJ 0.5 MG/0.5 ML SYR IV PRN (10:55)
[2022-01-15] MEDS ORDERED: FAMOTIDINE 20 MG TAB PO PRN (10:55)
[2022-01-15] MEDS ORDERED: bisacodyL 10 MG SUPP PR PRN (10:55)
[2022-01-15] MEDS ORDERED: hydrOXYzine HCl 25 MG TAB PO PRN (10:55)
[2022-01-15] MEDS ORDERED: RACEPINEPHRINE 2.25% NEBU SOLN 0.5 ML VIAL INH PRN (10:55)
[2022-01-15] MEDS ORDERED: LORazepam 0.5 MG TAB PO PRN (10:55)
[2022-01-15] MEDS ORDERED: SOD PHOSPHATE/SOD BIPHOSPHATE ENEMA 132 ML BTL PR PRN (10:55)
[2022-01-15] MEDS ORDERED: DO NOT ADMINISTER FLU VACCINE PRN (10:55)
[2022-01-15] MEDS ORDERED: METOCLOPRAMIDE HCL INJ 5 MG/ML 2 ML VIAL IV PRN (10:55)
[2022-01-15] MEDS ORDERED: oxyCODONE HCL IR 5 MG TAB (IMMEDIATE RELEASE) PO PRN (10:55)
[2022-01-15] MEDS ORDERED: diphenhydrAMINE Capsule 25 MG CAP PO PRN (10:55)
[2022-01-15] MEDS ORDERED: DO NOT ADMINISTER PNEUMOCOCCAL VACCINE PRN (10:55)
[2022-01-15] MEDS ORDERED: ONDANSETRON 4 MG OD TAB PO PRN (10:55)
[2022-01-15] MEDS ORDERED: LORazepam 2 MG/1 ML VIAL IV PRN (10:55)
[2022-01-15] MEDS ORDERED: dexAMETHasone 8 MG in SYRINGE 0 ML IV PRN (10:55)
[2022-01-15] MEDS ORDERED: ACETAMINOPHEN 1,000 MG/100 ML VIAL IV PRN (10:55)
[2022-01-15] MEDS ORDERED: traMADol HCL 50 MG TABLET PO PRN (10:55)
[2022-01-15] MEDS ORDERED: ACETAMINOPHEN 500 MG TAB PO PRN (10:55)
[2022-01-15] MEDS ORDERED: ALUMINUM/MAGNESIUM SUSP 30 ML UDC PO PRN (10:55)
[2022-01-15] MEDS ORDERED: MAGNESIUM HYDROXIDE SUSP 30 ML UDC PO PRN (10:55)
--- NOTE | 2022-01-15 11:29 | Fluoroscopy Report ---
[place] cervical 2-3V CLINICAL HISTORY: C3-C4 ACDF COMPARISON STUDY: 04/10/2019. FLUOROSCOPY TIME: 16 seconds. FINDINGS: A single fluoroscopic spot image of the cervical spine demonstrate anterior cervical discec gurvinder and fusion at C3-C4. The hardware appears intact. The C4-C7 anterior fusion hardware remains int act and is unchanged. IMPRESSION: Fluoroscopic assistance provided for interval C3-C4 ACDF. ACT 112: Negative or not required by law. Electronically signed by: Riley Anaya M.D. 01/15/2022 11:27 AM
[2022-01-15] MEDS ORDERED: ERGOCALCIFEROL 50,000 UNITS 1250 MCG CAP PO SCH (11:30)
[2022-01-15] MEDS: LACTATED RINGER'S 1,000 ML IV SCH ×2 (12:21→21:58)
[2022-01-15] MEDS: ADVANCED PROBIOTIC 1250 MG CAPSULE PO SCH (12:58)
[2022-01-15] MEDS: ceFAZolin 2000MG 2,000 MG/15 ML SYR IV SCH ×2 (17:02→23:24)
[2022-01-15] MEDS ORDERED: DOCUSATE SODIUM/SENNA 50/8.6MG TAB PO SCH (21:00)
[2022-01-16] MEDS ORDERED: POLYETHYLENE (MIRALAX) 17 GM PACK PO SCH (06:00)
[2022-01-16] MEDS ORDERED: PANTOprazole 40 MG TAB PO SCH (09:00)
[2022-01-16] MEDS ORDERED: ASPIRIN 81 MG ECTAB PO SCH (09:00)
[2022-01-16] MEDS ORDERED: dexAMETHasone 8 MG in SYRINGE 0 ML IV SCH (09:00)
[2022-01-16] MEDS ORDERED: CHOLECALCIFEROL 1,000 UNITS 25 MCG TAB PO SCH (09:00)
[2022-01-16] MEDS ORDERED: FENOFIBRATE NANOCRYSTALLIZED 48 MG TABLET PO SCH (09:00)
--- NOTE | 2022-01-16 09:14 | Discharge Summary ---
Date of Service January 16, 2022 Admission HPI Per Admitting Provider This is a 51-year-old female presents with chronic persistent neck and arm pain Failing course of nonoperative care she is here for surgical intervention. Principal Diagnosis Cervical spinal stenosis with radiculopathy Discharge Data Allergies Allergy/AdvReac Type Severity Reaction Status Date / Time No Known Allergies Allergy Verified 01/15/22 06:37 Procedures Performed Operation Date: 01/15/22 07:45 Actual Procedures p C3-C4 Anterior Cervical Discectomy and Fusion, Ifactor bone graft, Spinal Cord Monitoring(Not Applicable) - Dilan Hollins DO Ordered Studies 01/15/22 [place] cervical 2-3V Routine Hospital Course (1) Cervical stenosis of spinal canal: Patient 1 anterior cervical discectomy and fusion C3-C4. Patient tolerates procedure well was taken to orthopedic for postoperative. Postop day 1 she was swallowing well no hoarseness. Arm symptoms improved. Excellent strength testing. Subsequent discharge home. Discharge orders instructions from the chart for further review. Total Time Total Time Spent Total Time Spent (In Minutes): 20 minutes Discharge Plan Discharge Items Patient Disposition: Home - Self-Care Reason For Visit: Spinal Stenosis, Cervical Region Discharge Diagnosis: Cervical spinal stenosis with radiculopathy Activity: As commented below Non-emergency contact: Primary Care Provider Call non-emergency contact if: you have any medication questions Follow-up/Referrals: Gonzalo Maddox [Primary Care Provider] - Diet: Regular Addtl Attending Provider Instructions: ACTIVITY RECOMMENDATIONS: SELF CARE INSTRUCTIONS AFTER CERVICAL FUSIONS 1. No smoking. Smoking drastically decreases the chance of a solid fusion. 2. No bending, lifting more than 5 pounds, or twisting (roll like a log when turning in bed). 3. You may shower 3 days after surgery. Thoroughly dry wound. Do not soak in the tub. 4. Cervical collar: Must be worn at all times including sleeping. You may remove the brace only to bath, eat and if you are sitting in a recliner. 5. Please walk as much as you can for exercise. Gradually increase the distance that you walk as your endurance increases. SPECIAL CARE INSTRUCTIONS: VERY IMPORTANT TO READ AND REVIEW A. Do not take any anti-inflammatory medications (i.e. Indocin, Advil, Aspirin, Naprosyn, Aleve, Motrin, etc.) as these may inhibit the chance of a solid fusion. Tylenol is okay to take. B. Your surgical incision has been closed with a cosmetic suture under the skin that will dissolve in about 6 weeks. In 14 days, you can use a pair of clean scissors and cut the suture that is left outside of the skin at the ends of your incision. C. Complications are uncommon, but please contact us if you have any signs or symptoms of: 1. wound infection (fever higher than 102.5 degrees F, redness, separation of wound, drainage, or increasing pain from the incision) 2. blood clots in legs (pain, swelling, redness and warmth in legs) 3. urinary tract infection (fever higher than 102.5 degrees, burning upon urination or increased frequency of urination) 4. nerve problems (inability to walk on your toes or heels, numbness, loss of bowel or bladder control) 5. any other symptoms that concern you. D. Please call the office at if you have any concerns or questions about your operation or recovery. MANAGING PAIN AFTER SPINAL SURGERY 1. Narcotic medication is intended for short-term use and will be provided for surgical pain. Surgical pain usually lasts for a period of 4-6 weeks. Narcotic medication includes Percocet, Vicodin, Darvocet, Tylenol #3 or Lortab. 2. Longer-term pain is more appropriately treated with non-narcotic medication such as Tylenol ES. 3. Muscle spasm is not appropriately treated with narcotics. Muscle relaxers such as Soma, Flexeril or Skelaxin can be used along with Tylenol ES. 4. Remember that we all live with some "aches and pains". This is not unusual or uncommon after an injury or as we get older. 5. We will provide appropriate medication within the normal guidelines of their prescribed use. We will also be very cautious and aware of potential abuse and extended duration of patients' medication needs. 6. Please allow 2-3 days to process refills. Prescriptions will not be mailed but must be picked up at the office. FOLLOW UP VISIT: Keep your scheduled follow-up appointment. Any questions, please call the office at . Pending Studies at Discharge: No Stand-Alone Forms: My [employer], Smoking Cessation Medications and PR Order Prescriptions: New tramadol 50 mg tablet 50 mg PO Q6H PRN (Reason: pain, moderate) Qty: 20 RF: 0 oxycodone 5 mg tablet 5 mg PO Q6H PRN (Reason: pain, severe) Qty: 20 RF: 0 Continued ergocalciferol (vitamin D2) [Vitamin D2] 50,000 unit Capsule 50,000 unit PO DIRECTED RF: 0 fenofibrate micronized 67 mg Capsule 67 mg PO QAM RF: 0 apple cider vinegar 600 mg Capsule 1,200 mg PO QAM RF: 0 pantoprazole 40 mg Tablet,Delayed Release (Dr/Ec) 40 mg PO QAM RF: 0 cholecalciferol (vitamin D3) [Vitamin D3] 50 mcg (2,000 unit) Capsule 50 mcg PO QAM RF: 0 omega 4-nbj-djg-fish oil [Fish Oil] 1,200 (144-216) mg Capsule 1 cap PO QAM RF: 0 Align 10.5 mg (10 million cell) Tablet,Chewable 21 mg PO BID RF: 0 Pectosol Otc 1 tab PO QAM RF: 0 aspirin 81 mg Tablet,Delayed Release (Dr/Ec) 81 mg PO QAM RF: 0 Discharge Orders: Discharge Order (Routine); Ordered 01/16/22 Ordered By: Dilan Hollins Admission Data Admit Date/Time: 01/15/22 09:08 Attending Provider: Dilan Hollins Admit Provider: Dilan Hollins Primary Care Provider: Gonzalo Maddox
[2022-01-16] MEDS: ADVANCED PROBIOTIC 1250 MG CAPSULE PO SCH (09:45)
== END 2022-01-16 11:13 | disposition home or self-care (01) ==
LOC: ASU 06:07 → INTOOBSV 09:08 → 3E 09:08